=== PATIENT | female | born 1955 ===

== ENCOUNTER 2025-07-15 07:36 | Inpatient (IN) | payer OTHER ==
[~2025-07-15] VITALS: Ht 121.9 cm; Wt 116.1 kg
[2025-07-15 09:10] LABS: URINE APPEARANCE Clear; URINE BACTERIA 2979.4 uL (0.0-1933); URINE BILIRRUBIN Negative (NEGATIVE); URINE BLOOD Negative; URINE COLOR Yellow; URINE EPITHELIAL CELLS 10.4 uL (0.0-38.8); URINE GLUCOSE Negative (NEGATIVE); URINE KETONE Negative (NEGATIVE); URINE LEUKOCYTE Trace; URINE NITRATE Negative; URINE PROTEIN Negative (NEGATIVE); URINE RBC 3.5 uL (0.0-20.8); URINE UROBILINOGEN 0.2 E.U./dl; URINE WBC 28.2 uL (0.0-23.2)
[2025-07-15 09:12] LABS: URINE CAST 0.14 uL (0.0-1.40)
[2025-07-15 09:23] LABS: INR 0.98
[2025-07-15 09:25] LABS: BASO % 0.8 % (0.1-1.2); EOS # 0.36 (0.04-0.54); EOS % 2.8 % (0.7-7.0); LYMPH # 3.38 (1.18-3.74); LYMPH % 26.5 % (19.3-53.1); MEAN PLATELET VOLUME 11.40 fl (9.4-12.4); MONO # 0.98 (0.24-0.82); MONO % 7.7 % (4.7-12.5); NEUT # 7.89 (1.56-6.13); NEUT % 62.0 % (34.0-71.1); RED CELL DISTRIBUTION WIDTH 15.6 % (11.6-14.4)
[2025-07-15 09:46] LABS: ALT/SGPT 24.0 U/L (12-78); AST/SGOT 22.0 U/L (15-37); BILIRUBIN TOTAL 0.31 mg/dL (0.3-1.2); BUN CREA RATIO 23.0 (7.0-25.0); CREATININE SERUM 0.66 mg/dL (0.55-1.02); GFR 88.54; GLOBULINA 3.2 G/DL (2.4-3.5); GLUCOSE FASTING 104.0 mg/dL (65-100); OSMOLALITY SERUM 286.0 MOSM/KG (275-295)
[2025-08-05] MEDS ORDERED: CEFAZOLIN SODIUM 1,000 MG VIAL ONE ×2 (09:07→19:10)
[2025-08-05] MEDS ORDERED: TRANEXAMIC ACID 100MG/1ML (1000MG) AMPUL ONE (09:07)
[2025-08-05] MEDS ORDERED: KETOROLAC TROMETHAMINE 60 MG VIAL IM ONE ×2 (10:51→12:15)
[2025-08-05] MEDS ORDERED: VANCOMYCIN HCL 1,000 MG VIAL ONE (10:51)
[2025-08-05] MEDS ORDERED: LIDOCAINE HCL 1%/EPINEPHRINE 20ML VIAL IJ ONE ×2 (10:51→12:15)
[2025-08-05] MEDS ORDERED: METHYLPREDNISOLONE ACETATE 80 MG/ML VIAL ONE (11:25)
[2025-08-05] MEDS ORDERED: TRANEXAMIC ACID 100MG/1ML (1000MG) AMPUL IV ONE (12:15)
[2025-08-05] MEDS ORDERED: BUPIVACAINE HCL/PF 0.25% 30ML VIAL InF ONE (12:15)
[2025-08-05] MEDS ORDERED: ISOPROPYL ALCOHOL 30 ML OUNCE TOP ONE (12:15)
[2025-08-05] MEDS ORDERED: CEFAZOLIN SODIUM 1,000 MG VIAL IV ONE (12:15)
[2025-08-05] MEDS ORDERED: METHYLPREDNISOLONE ACETATE 80 MG/ML VIAL IM ONE (12:15)
[2025-08-05] MEDS ORDERED: MORPHINE SULFATE 4 MG/ML VIAL IV ONE ×2 (12:15→13:45)
[2025-08-05] MEDS ORDERED: ONDANSETRON HCL 2 MG/ML VIAL IV PRN (13:45)
[2025-08-05] MEDS ORDERED: SODIUM CHLORIDE 0.45 % 1,000 ML IV SCH (13:45)
[2025-08-05] MEDS ORDERED: MORPHINE SULFATE 4 MG/ML VIAL IV PRN (13:45)
[2025-08-05] MEDS ORDERED: GENTAMICIN SULFATE 40 MG/ML VIAL IV SCH (13:48)
[2025-08-05] MEDS ORDERED: GENTAMICIN SULFATE 40 MG/ML VIAL ONE (14:24)
[2025-08-05] MEDS ORDERED: CEFAZOLIN SODIUM 1,000 MG VIAL IV SCH (18:00)
[2025-08-05 20:05] VITALS: BP 146/80
[2025-08-06] VITALS: BP 121/65; O2SAT 98
[2025-08-06 02:25] LABS: BASO % 0.2 % (0.1-1.2); EOS # 0.00 (0.04-0.54); EOS % 0.0 % (0.7-7.0); LYMPH # 1.13 (1.18-3.74); LYMPH % 5.6 % (19.3-53.1); MEAN PLATELET VOLUME 12.10 fl (9.4-12.4); MONO # 1.21 (0.24-0.82); MONO % 6.0 % (4.7-12.5); NEUT # 17.63 (1.56-6.13); NEUT % 87.7 % (34.0-71.1); RED CELL DISTRIBUTION WIDTH 15.8 % (11.6-14.4)
[2025-08-06] MEDS ORDERED: ACETAMINOPHEN WITH CODEINE 1 UDTAB TABLET PO PRN (08:30)
[2025-08-06 08:46] VITALS: BP 122/70; O2SAT 99
[2025-08-06] MEDS ORDERED: SENNA/DOCUSATE SODIUM 1 TAB TABLET PO SCH (09:00)
[2025-08-06] MEDS ORDERED: RIVAROXABAN 10 MG TAB PO SCH (09:00)
[2025-08-06] MEDS ORDERED: BACITRACIN 28.35 GM OINT.TUBE TOP SCH (09:00)
[2025-08-06] MEDS ORDERED: GENTAMICIN SULFATE 40 MG/ML VIAL IV SCH (09:00)
[2025-08-06] MEDS ORDERED: ATORVASTATIN CALCIUM 20 MG TABLET PO SCH (09:00)
[2025-08-06] MEDS ORDERED: LISINOPRIL 10 MG TABLET PO SCH (09:00)
[2025-08-06] MEDS ORDERED: CELECOXIB 200 MG CAPSULE PO SCH (09:00)
[2025-08-06] MEDS ORDERED: IRON FUM,PS/FOLIC/BCOMP,C NO.9 1 CAP CAPSULE PO SCH (09:00)
[2025-08-06 13:55] LABS: COVID-19 AG NEGATIVE (NEGATIVE)
[2025-08-06 14:28] LABS: ALT/SGPT 22.0 U/L (12-78); AST/SGOT 26.0 U/L (15-37); BILIRUBIN TOTAL 0.65 mg/dL (0.3-1.2); BUN CREA RATIO 22.0 (7.0-25.0); CREATININE SERUM 0.69 mg/dL (0.55-1.02); GFR 84.11; GLOBULINA 3.2 G/DL (2.4-3.5); GLUCOSE FASTING 165.0 mg/dL (65-100); OSMOLALITY SERUM 286.0 MOSM/KG (275-295)
[2025-08-06 16:50] VITALS: BP 150/70
[2025-08-06] MEDS ORDERED: SULFAMETHOXAZOLE/TRIMETHOPRIM DS 1 TAB PO SCH (21:00)
[2025-08-07] VITALS: BP 148/63
[2025-08-07 01:16] LABS: BASO % 0.2 % (0.1-1.2); EOS # 0.00 (0.04-0.54); EOS % 0.0 % (0.7-7.0); LYMPH # 1.43 (1.18-3.74); LYMPH % 7.0 % (19.3-53.1); MEAN PLATELET VOLUME 12.20 fl (9.4-12.4); MONO # 1.82 (0.24-0.82); MONO % 8.9 % (4.7-12.5); NEUT # 17.06 (1.56-6.13); NEUT % 83.3 % (34.0-71.1); RED CELL DISTRIBUTION WIDTH 15.1 % (11.6-14.4)
[2025-08-07] MEDS ORDERED: INTEGRA PLUS C1 EACH PO (07:18)
[2025-08-07] MEDS ORDERED: Septra Ds Tablet PO (07:18)
[2025-08-07] MEDS ORDERED: ACETAMINOPHEN-1 EAC2 PO (07:19)
[2025-08-07] MEDS ORDERED: XARELTO10 MG PO (07:19)
[2025-08-07 08:00] VITALS: BP 115/66
== END 2025-08-07 16:54 | DRG 470 ==
LOC: O/R 08-05 07:00 → OB/GYN 08-05 07:00 → SURH 08-05 08:30 → OB/GYN 08-05 14:39
PROVIDERS: ADMIT Orthopaedic Surgery Sports Medicine; ATTEND Orthopaedic Surgery Sports Medicine
PROC: 0SRC0J9 Replacement of Right Knee Joint with Synthetic Substitute, Cemented, Open Approach (ICD-10-PCS; principal; 2025-08-05 10:30)
DX: M17.11 Unilateral primary osteoarthritis, right knee (principal); Z96.651 Presence of right artificial knee joint